=== PATIENT | female | born 1965 | race African-American/Black ===

== ENCOUNTER 2017-10-24 11:29 | Emergency (ER) | payer OTHER ==
[2017-10-24 11:37] VITALS: BP 124/70; PULSE 87; TEMP 98.6; BMI 40.4
[2017-10-24] MEDS ORDERED: ACETAMINOPHEN 325 MG TABLET (FP) PO ONE (12:55)
[2017-10-24] MEDS ORDERED: ACETAMINOPHEN 325 MG TABLET (FP) ONE (12:58)
[2017-10-24] MEDS ORDERED: ONDANSETRON 4 MG/2 ML VIAL IVPB ONE (13:00)
--- NOTE | 2017-10-24 13:00 | PDOC ---
History of Present Illness - General Chief Complaint: Pain Stated Complaint: LEG PAIN, HEADACHE Time Seen by Provider: 10/24/17 11:44 - History of Present Illness Initial Comments: 10/24/17 12:55 52 yo F with no significant pmh who p/w spasms and nausea. Patient reports 1 week of diffuse muscle spasms or fasciculations, with no identifiable triggers or alleviators. States that she has been having twitching of anterior thighs, legs, rectum, and lower abdomen. Reports 1-2 weeks of sharp, lower abdominal pain ( now improved). 1 week of nausea without vomiting. Denies OTC symptom management. Denies F/C, leg swelling, orthopnea, PND, diaphroesis, palpitations, N/V, CP, SOB, abdominal pain, diarrhea, constipation, urinary complaints, vaginal bleeding/itching/discharge, pelvic pain, weakness, lightheadedness, sensory changes. PMHx: as noted above. H/o 3 c-sections. H/o fibroids. ROS: as noted above SHx: Denies Etoh, tobacco, or IVDA. Postmenopausal. LMP 8 years ago. Allergies: NKDA Past History - Past Medical History Allergies/Adverse Reactions: Allergies Allergy/AdvReac Type Severity Reaction Status Date / Time No Known Allergies Allergy Verified 10/24/17 11:32 COPD: No Disorders: No (fibroids,vag.cyst) Other medical history: back problems - Suicide/Smoking/Psychosocial Hx Smoking History: Never smoked Have you smoked in the past 12 months: No Information on smoking cessation initiated: No Hx Alcohol Use: No Drug/Substance Use Hx: No Substance Use Type: None Review of Systems - Review of Systems Comments:: 10/24/17 13:10 GENERAL/CONSTITUTIONAL: No fever or chills. No weakness. HEAD, EYES, EARS, NOSE AND THROAT: No change in vision. No ear pain or discharge. No sore throat. CARDIOVASCULAR: No chest pain or shortness of breath RESPIRATORY: No cough, wheezing, or hemoptysis. GASTROINTESTINAL: No nausea, vomiting, diarrhea or constipation. GENITOURINARY: + Suprpapubic discomfort. No dysuria, frequency, or change in urination. MUSCULOSKELETAL: + Fasciculations. No joint or muscle swelling or pain. No neck or back pain. SKIN: No rash NEUROLOGIC: No headache, vertigo, loss of consciousness, or change in strength/ sensation. ENDOCRINE: No increased thirst. No abnormal weight change HEMATOLOGIC/LYMPHATIC: No anemia, easy bleeding, or history of blood clots. ALLERGIC/IMMUNOLOGIC: No hives or skin allergy. *Physical Exam - Vital Signs Last Vital Signs Temp Pulse Resp BP Pulse Ox 98.6 F 87 18 124/70 100 10/24/17 11:34 10/24/17 11:34 10/24/17 11:34 10/24/17 11:34 10/24/17 11:34 - Physical Exam Comments: 10/24/17 13:11 GENERAL: Awake, alert, and fully oriented, in no acute distress HEAD: No signs of trauma, normocephalic, atraumatic EYES: PERRLA, EOMI, sclera anicteric, conjunctiva clear ENT: Hearing grossly normal, nares patent, oropharynx clear without exudates. Moist mucosa NECK: Normal ROM, supple, no lymphadenopathy, JVD, or masses LUNGS: No distress, speaks full sentences, clear to auscultation bilaterally HEART: Regular rate and rhythm, normal S1 and S2, no murmurs, rubs or gallops, peripheral pulses normal and equal bilaterally. ABDOMEN: Soft, nontender, normoactive bowel sounds. No guarding, no rebound. No masses. Neg CVA ttp. EXTREMITIES : Normal inspection, Normal range of motion, no edema. No clubbing or cyanosis. SKIN: Warm, Dry, normal turgor, no rashes or lesions noted ED Treatment Course - LABORATORY CBC & Chemistry Diagram: 10/24/17 15:04 10/24/17 15:04 Medical Decision Making - Medical Decision Making 10/24/17 13:11 52 yo F with no significant pmh who p/w fasciculations and nausea without vomitting. VSS, AF, A&Ox3. Will assess for electrolyte abnml, toxic or metabolic derangements,acid-base disturbances, or underlying infection. Ed Course: CBC, CMP UA Bentyl, Tylenol, Zofran 10/24/17 15:49 CBC,CMP: Unremarkable UA: Neg Patient stable for d/c with return precautions. Advised to f/u with PMD. *DC/Admit/Observation/Transfer Diagnosis at time of Disposition: Benign fasciculations - Discharge Dispostion Disposition: HOME - Referrals Referrals: Merry Butts MD [Primary Care Provider] - - Patient Instructions Printed Discharge Instructions: DI for Nocturnal Leg Cramps, DI for Nausea -- Adult Additional Instructions: Please return to the emergency department with any new or worsening symptoms or concerns. Please follow up with your primary care physician within 72 hours. - Post Discharge Activity - Attestations Physician Attestion: 10/24/17 15:50 I attest to the information provided in this note.
[2017-10-24] MEDS ORDERED: DICYCLOMINE HCL 10 MG CAPSULE PO ONE (13:02)
[2017-10-24] MEDS ORDERED: ONDANSETRON *ODT* 4 MG TABLET SL ONE (13:04)
[2017-10-24] MEDS ORDERED: DICYCLOMINE HCL 10 MG CAPSULE ONE (13:05)
[2017-10-24] MEDS ORDERED: ONDANSETRON *ODT* 4 MG TABLET ONE (13:05)
[2017-10-24 15:16] LABS: BASO % 0.4 % (0-2.0); EOS % 2.5 % (0-4.5); HEMATOCRIT 38.7 % (32.4-45.2); HEMOGLOBIN 12.8 GM/dL (10.7-15.3); LYMPH % 34.5 % (8-40); MCH 27.2 pg (25.7-33.7); MCHC 33.1 g/dl (32.0-36.0); MEAN CELL VOLUME 82.4 fl (80-96); MEAN PLT VOLUME 11.6 fl (7.5-11.1); MONO % 9.8 % (3.8-10.2); NEUT % 52.8 % (42.8-82.8); PLATELET COUNT 104 K/MM3 (134-434); RDW 13.9 % (11.6-15.6); WHITE BLOOD COUNT 3.3 K/mm3 (4.0-10.0)
[2017-10-24 15:21] LABS: URINE APPEARANCE CLEAR; URINE BILIRUBIN NEGATIVE (<2.0 mg/dL); URINE BLOOD NEGATIVE (NEGATIVE); URINE COLOR LTYELLOW; URINE GLUCOSE (UA) NEGATIVE (NEGATIVE); URINE KETONE NEGATIVE (NEGATIVE); URINE LEUK ESTERASE NEGATIVE (NEGATIVE); URINE NITRITE NEGATIVE (NEGATIVE); URINE PROTEIN NEGATIVE (NEGATIVE); URINE UROBILINOGEN NEGATIVE mg/dL (0.2-1.0)
[2017-10-24 15:39] LABS: ALBUMIN 3.6 g/dl (3.4-5.0); ANION GAP 6 (8-16); BLOOD UREA NITROGEN 15 mg/dL (7-18); CHLORIDE 111 mmol/L (98-107); CO2 26 mmol/L (21-32); CREATININE 0.9 mg/dL (0.55-1.02); GLUCOSE,RANDOM 90 mg/dL (74-106); POTASSIUM 4.1 mmol/L (3.5-5.1); SGOT/AST 21 U/L (15-37); SGPT/ALT 27 U/L (12-78); SODIUM 143 mmol/L (136-145)
[2017-10-24 15:40] LABS: ALK PHOS 146 U/L (45-117); BILIRUBIN,TOTAL 0.3 mg/dL (0.2-1.0); TOT PROT 7.2 g/dl (6.4-8.2)
== END 2017-10-24 16:33 | disposition home or self-care (01) ==
LOC: JER 11:29
DX: R25.3 Fasciculation (principal)
CPT/HCPCS: 36415; 80053; 81003; 83735; 85025; 87086; 99282-25; Q0162

== ENCOUNTER 2018-09-19 14:58 | Emergency (ER) | payer OTHER ==
--- NOTE | 2018-09-19 15:07 | PDOC ---
Rapid Medical Evaluation Time Seen by Provider: 09/19/18 15:06 Medical Evaluation: Allergies Allergy/AdvReac Type Severity Reaction Status Date / Time No Known Allergies Allergy Verified 10/24/17 11:32 09/19/18 15:06 HPI:Pelvic pain x 5 days hx of fibroids PE: Deferred ORDERS: UA Cx 09/19/18 15:07 Discharge Disposition - Diagnosis Pelvic pain - Referrals - Patient Instructions - Post Discharge Activity
[2018-09-19 15:11] VITALS: BP 112/70; PULSE 95; TEMP 99.5; BMI 42.0
[2018-09-19 16:39] LABS: URINE APPEARANCE CLEAR; URINE BILIRUBIN NEGATIVE (NEGATIVE); URINE COLOR YELLOW; URINE GLUCOSE (UA) NEGATIVE (NEGATIVE); URINE KETONE NEGATIVE (NEGATIVE); URINE LEUK ESTERASE NEGATIVE (NEGATIVE); URINE NITRITE NEGATIVE (NEGATIVE); URINE PROTEIN NEGATIVE (NEGATIVE); URINE UROBILINOGEN 0.2 mg/dL (0.2-1.0)
[2018-09-19] MEDS ORDERED: KETOROLAC TROMETHAMINE 60 MG/2 ML VIAL IM ONE (17:22)
[2018-09-19] MEDS ORDERED: KETOROLAC TROMETHAMINE 60 MG/2 ML VIAL ONE (17:30)
[2018-09-19 17:37] LABS: BASO % 0.4 % (0-2.0); EOS % 1.4 % (0-4.5); HEMATOCRIT 41.8 % (32.4-45.2); HEMOGLOBIN 13.6 GM/dL (10.7-15.3); LYMPH % 25.9 % (8-40); MCH 27.4 pg (25.7-33.7); MCHC 32.7 g/dl (32.0-36.0); MEAN CELL VOLUME 83.9 fl (80-96); MEAN PLT VOLUME 12.1 fl (7.5-11.1); MONO % 9.7 % (3.8-10.2); NEUT % 62.6 % (42.8-82.8); PLATELET COUNT 104 K/MM3 (134-434); RBC 4.98 M/mm3 (3.60-5.2); WHITE BLOOD COUNT 5.6 K/mm3 (4.0-10.0)
--- NOTE | 2018-09-19 17:39 | PDOC ---
History of Present Illness - General Chief Complaint: Pain Stated Complaint: BODY PAIN Time Seen by Provider: 09/19/18 15:06 History Source: Patient Exam Limitations: Clinical Condition - History of Present Illness Initial Comments: 09/19/18 15:55 Patient with h/o uterine fibroids, and sciatica on pain management which she report hasn't seen for few months present with complains of right groin pain going to right hip which she believes from her ovaries. Patient report that when she goes home, she should be sent home with a strong pain medication. Patient described the pain and cramping pain which is worsen with getting up from laying position and sitting. Denies diarrhea, vomiting, constipation, fever ,chills, weakness. Patient morbid obese and report pain is more below right pelvic area under panus of abdomen. Denies any other symptoms Timing/Duration: other (4 days) Past History - Past Medical History Allergies/Adverse Reactions: Allergies Allergy/AdvReac Type Severity Reaction Status Date / Time No Known Allergies Allergy Verified 09/19/18 15:06 Home Medications: Ambulatory Orders Ketorolac Tromethamine 10 mg PO Q8H PRN #20 tablet 09/19/18 COPD: No Disorders: No (fibroids,vag.cyst) - Immunization History Immunization Up to Date: Yes - Suicide/Smoking/Psychosocial Hx Smoking History: Never smoked Have you smoked in the past 12 months: No Information on smoking cessation initiated: No Hx Alcohol Use: No Drug/Substance Use Hx: No Substance Use Type: None Review of Systems - Review of Systems Able to Perform ROS?: Yes Is the patient limited Persian proficient: No Constitutional: No: Fever, Malaise, Weakness HEENTM: No: Symptoms Reported, See HPI, Eye Pain, Blurred Vision, Tearing, Recent change in vision, Double Vision, Cataracts, Ear Pain, Ocular Prothesis, Ear Discharge, Nose Pain, Nose Congestion, Tinnitus, Nose Bleeding, Hearing Loss , Throat Pain, Throat Swelling, Mouth Pain, Dental Problems, Difficulty Swallowing, Mouth Swelling, Other Respiratory: No: Symptoms reported, See HPI, Cough, Orthopnea, Shortness of Breath, SOB with Exertion, SOB at Rest, Stridor, Wheezing, Productive cough, Hemoptysis, Other Cardiac (ROS): No: Symptoms Reported, See HPI, Chest Pain, Edema, Irregular Heart Rate, Lightheadedness, Palpitations, Syncope, Chest Tightness, Other ABD/GI: Yes: See HPI. No: Abd. Pain w/ defecation, Blood Streaked Bowels, Constipated, Diarrhea, Difficulty Swallowing, Nausea, Poor Appetite, Poor Fluid Intake, Rectal Bleeding, Vomiting : Yes: Pain (right groin and pelvic area). No: Burning, Dysuria, Discharge, Frequency, Urgency Musculoskeletal: Yes: See HPI, Muscle Pain (right groin area) Neurological: No: Weakness, Dizziness All Other Systems: Reviewed and Negative *Physical Exam - Vital Signs Last Vital Signs Temp Pulse Resp BP Pulse Ox 99.5 F 95 H 16 112/70 96 09/19/18 15:06 09/19/18 15:06 09/19/18 15:06 09/19/18 15:06 09/19/18 15:06 - Physical Exam Comments: 09/19/18 17:37 GENERAL: Well developed, well nourished. Awake and alert. No acute distress. NECK: Supple. Full ROM. CARDIOVASCULAR: Regular rate and rhythm. No murmurs, rubs, or gallops. PULMONARY: No evidence of respiratory distress. Lungs clear to auscultation bilaterally. No wheezing, rales or rhonchi. ABDOMINAL: Soft. Non-tender. Non-distended. No rebound or guarding. No organomegaly. Normoactive bowel sounds. MUSCULOSKELETAL Normal range of motion at all joints. mild groin tenderness worse with external rotation of right hip SKIN: Warm and dry. Normal capillary refill. No rashes. No jaundice. NEUROLOGICAL: Alert, awake, appropriate. Gait is normal without ataxia. PSYCHIATRIC: Cooperative. Good eye contact. Appropriate mood General Appearance: Yes: Nourished, Appropriately Dressed, Mild Distress ED Treatment Course - LABORATORY CBC & Chemistry Diagram: 09/19/18 17:16 09/19/18 17:16 - ADDITIONAL ORDERS Additional order review: Laboratory Results 09/19/18 09/19/18 16:18 15:55 Urine Color Yellow Urine Appearance Clear Urine pH 5.0 D Ur Specific [place] 1.027 Urine Protein Negative Urine Glucose (UA) Negative Urine Ketones Negative Urine Blood Negative Urine Nitrite Negative Urine Bilirubin Negative Urine Urobilinogen 0.2 Ur Leukocyte Esterase Negative Urine HCG, Qual Negative - RADIOLOGY Radiology Studies Ordered: Category Date Time Status TRANSVAGINAL ULTRASOUND US [US] Stat Ultrasound 09/19/18 17:07 Ordered Medical Decision Making - Medical Decision Making 09/19/18 18:59 Patient with h/o uterine fibroids, and sciatica on pain management which she report hasn't seen for few months present with complains of right groin pain going to right hip which she believes from her ovaries. Patient report that when she goes home, she should be sent home with a strong pain medication. Patient described the pain and cramping pain which is worsen with getting up from laying position and sitting. Denies diarrhea, vomiting, constipation, fever ,chills, weakness. Patient morbid obese and report pain is more below right pelvic area under panus of abdomen. Denies any other symptoms 09/19/18 19:35 cbc, cmp, urine labs unremarkable. pelvic US shows no acute findings. Patient report improved pain with toradol but insisting on being sent home with some narcotics as pain hasnt completely resolved and she needs something that will make her sleep at night as she cant sleep due to the pain. Advised patient she only needs nsaids for pain until she follow-up with [facility]. PO toradol rx sent for pain and advised to follow-up with [facility] and her pain management for chronic back pains *DC/Admit/Observation/Transfer Diagnosis at time of Disposition: Pelvic pain - Discharge Dispostion Disposition: HOME Condition at time of disposition: Stable Decision to Admit order: No - Prescriptions Prescriptions: Ketorolac Tromethamine 10 mg PO Q8H PRN #20 tablet PRN Reason: pain - Referrals Referrals: Bentley Odell MD [Staff Physician] - - Patient Instructions Printed Discharge Instructions: DI for Pelvic Pain Additional Instructions: Your labs and ultrasound was normal. Take prescribed medication as needed for pain. Follow-up with referred [facility] - Post Discharge Activity
[2018-09-19 18:10] LABS: BILIRUBIN,TOTAL 0.5 mg/dL (0.2-1); CALCIUM 9.9 mg/dL (8.5-10.1); CREATININE 0.7 mg/dL (0.55-1.3); POTASSIUM 3.9 mmol/L (3.5-5.1); TOT PROT 7.7 g/dl (6.4-8.2)
[2018-09-19] MEDS ORDERED: morphine CARPU-JECT 2 MG/1 ML DISP.SYRIN IM ONE (19:10)
[2018-09-19] MEDS ORDERED: morphine SULFATE 4 MG/ML VIAL ONE (19:16)
== END 2018-09-19 19:28 | disposition home or self-care (01) ==
LOC: JER 14:58
DX: R10.2 Pelvic and perineal pain (principal); Z86.2 Personal history of diseases of the blood and blood-forming organs and certain disorders involving the immune mechanism
CPT/HCPCS: 36415; 76830-TC; 80053; 81003; 84703; 85025; 87389; 99282-25